=== PATIENT | female | born 1960 | race African-American/Black ===

== ENCOUNTER 2024-08-22 21:12 | Emergency (ER) | payer MEDICAID ==
[~2024-08-22] VITALS: Ht 167.6 cm; Wt 62.0 kg
[2024-08-22 22:34] VITALS: O2SAT 99
[2024-08-22 23:32] LABS: BASOPHILS % 0.5 % (0.0-2.0); EOSINOPHILS % 1.7 % (0.0-5.0); HEMATOCRIT. 35.3 % (36.0-48.0); HEMOGLOBIN. 11.1 g/dL (12.0-16.0); LYMPHOCYTES % 20.1 % (20.0-50.0); MEAN PLATELET VOLUME 8.9 fl (7.4-10.4); MONOCYTES % 7.7 % (2.0-8.0); NEUTROPHILS % 70.0 % (40.0-76.0); PLATELET 310 x1000/uL (130-400); RED BLOOD CELL COUNT 4.90 mill/uL (4.2-5.4); RED CELL DISTRIBUTION WIDTH 14.7 % (11.6-14.6)
[2024-08-22 23:46] LABS: CREATININE 0.8 mg/dL (0.6-1.0); UREA NITROGEN BLOOD 13 mg/dL (9-23)
[2024-08-22 23:48] LABS: TROPONIN I HIGH SENSITIVITY < 4 ng/L (3.0-34)
[2024-08-23] MEDS: DIPHENHYDRAMINE 12.5MG/5ML UDC PO ONE (03:45)
[2024-08-23] MEDS: PROCHLORPERAZINE MALEATE 10MG TABLET PO ONE (03:46)
[2024-08-23] MEDS: DEXAMETHASONE 4MG TABLET PO ONE (03:47)
[2024-08-23] MEDS: SUMATRIPTAN SUCCINATE 25MG TABLET PO ONE (03:48)
[2024-08-23] MEDS: KETOROLAC 30MG/ML VIAL IM ONE (03:50)
[2024-08-23] MEDS: SUMATRIPTAN SUCCINATE 25MG TABLET PO NR (03:52)
[2024-08-23 06:16] LABS: CLARITY URINE CLEAR (CLEAR); COLOR URINE YELLOW (YELLOW); GLUCOSE URINE NEGATIVE (NEGATIVE); KETONES URINE NEGATIVE (NEGATIVE); LEUKOCYTE ESTERASE URINE 2+ (NEGATIVE); NITRITE URINE NEGATIVE (NEGATIVE); OCCULT BLOOD URINE NEGATIVE (NEGATIVE); PH URINE 7.0 (4.5-8.0); PROTEIN URINE NEGATIVE (NEGATIVE); SPECIFIC GRAVITY URINE 1.005 (1.005-1.030); UROBILINOGEN URINE 0.2 E.U./dL (0.2-1.0)
[2024-08-23] MEDS ORDERED: KETO10TA2 MT (06:25)
[2024-08-23] MEDS ORDERED: SUMA11AE2 BOTHNSTRLS (06:25)
[2024-08-23] MEDS ORDERED: NITR100C MT (06:40)
[2024-08-23 07:21] VITALS: BP 184/95; PULSE 75; RESP 12; TEMP 36.7; O2SAT 100
[2024-08-23 07:45] LABS: BACTERIA URINE 1+; RBC URINE 0-2 /hpf (0-2); SQUAMOUS EPITHELIAL CELL URINE 3+ /lpf (RARE/1+); WBC URINE 15-25 /hpf (0-2); YEAST URINE NONE SEEN
== END 2024-08-23 07:28 | disposition home or self-care (01) ==
LOC: ER 21:12
DX: R51.9 Headache, unspecified (principal); N39.0 Urinary tract infection, site not specified; I10 Essential (primary) hypertension; Z91.148 Patient's other noncompliance with medication regimen for other reason; Z79.899 Other long term (current) drug therapy
CPT/HCPCS: 99285; 70450; 71045; 80048; 85025; 84484; 36415; 81003; 87086; 96372; J1885; J8540; Q0164; Q0163

== ENCOUNTER 2024-08-27 12:52 | Emergency (ER) | payer MEDICAID ==
[~2024-08-27] VITALS: Ht 160 cm; Wt 66.0 kg
[~2024-08-27 12:52] MED LIST: KETO10TA2 MT; NITR100C MT; SUMA11AE2 BOTHNSTRLS
[2024-08-27 12:55] VITALS: O2SAT 99
[2024-08-27 13:29] VITALS: TEMP 37
[2024-08-27] MEDS: ASPIRIN 81MG TABLET PO ONE (13:51)
[2024-08-27 14:02] LABS: BASOPHILS % 0.6 % (0.0-2.0); EOSINOPHILS % 1.7 % (0.0-5.0); HEMATOCRIT. 29.6 % (36.0-48.0); HEMOGLOBIN. 9.6 g/dL (12.0-16.0); LYMPHOCYTES % 20.3 % (20.0-50.0); MEAN PLATELET VOLUME 9.5 fl (7.4-10.4); MONOCYTES % 7.4 % (2.0-8.0); NEUTROPHILS % 70.0 % (40.0-76.0); PLATELET 290 x1000/uL (130-400); RED BLOOD CELL COUNT 4.09 mill/uL (4.2-5.4); RED CELL DISTRIBUTION WIDTH 15.0 % (11.6-14.6)
[2024-08-27 14:20] LABS: CREATININE 0.8 mg/dL (0.6-1.0); TROPONIN I HIGH SENSITIVITY < 4 ng/L (3.0-34); UREA NITROGEN BLOOD 14 mg/dL (9-23)
[2024-08-27] MEDS: SODIUM CHLORIDE 0.9% 1,000 ML IV ONE (14:38)
[2024-08-27 15:25] VITALS: BP 104/57; PULSE 50; RESP 13; O2SAT 100
[2024-08-27 16:21] LABS: TROPONIN I HIGH SENSITIVITY < 4 ng/L (3.0-34)
== END 2024-08-27 16:27 | disposition home or self-care (01) ==
LOC: ER 12:52
DX: R55 Syncope and collapse (principal); I10 Essential (primary) hypertension; Z79.899 Other long term (current) drug therapy
CPT/HCPCS: 80048; 85025; 84484; 36415; 71045; 93005; 96360; 99285; Z7610